=== PATIENT | female | born 1985 | race Caucasian/White ===

== ENCOUNTER 2017-02-11 21:30 | Emergency (ER) | payer OTHER ==
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
--- NOTE | ~2017-02-11 | CR157 ---
[facility] A Service of [facility] & [facility] RADIOLOGY TEXT RESULTS PATIENT: RIDDHI PUENTE LOCATION: [facility] : 85 UNIT #: [id number] AGE: [address]: Quinton Montano SEX: F ORDER DR: [id number] [facility] [address]. [place], [place] [address] [id number] E MR#: [id number] Acc #: [id number] NAME: RIDDHI PUENTE : 1985 SEX: F STUDY DATE/TIME: 02/11/2017 23:31 UNIT: [facility] ROOM: STUDY DESCRIPTION: CR Humerus Min 2 View Rt Attending Physician: Quinton Montano P.A.-C. Ordering Physician: Quinton Montano P.A.-C. Primary Care Physician: [facility] MEDICAL IMAGING REPORT This report is preliminary unless electronic signature is present EXAM 2 views of the right humerus. DATE: 02/11/2017 HISTORY Right humerus pain after injury tonight. Bruising. Abrasions. COMPARISON None. FINDINGS There is no evidence of fracture, dislocation, or radiopaque foreign body. No focal bone lesions are seen. IMPRESSION Normal humerus. Dictated by... Maria E Puente M.D. THIS IS AN ELECTRONICALLY VERIFIED REPORT Maria E Puente M.D. at 02/12/2017 9:55 PM MAXIMUS/chan TD: 02/12/2017 03:16 JOB #: [id number] MEDICAL IMAGING REPORT Page 1 of 1 COPY
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
--- NOTE | ~2017-02-11 | CR156 ---
[facility] A Service of [facility] & [facility] RADIOLOGY TEXT RESULTS PATIENT: RIDDHI PUENTE LOCATION: [facility] : 85 UNIT #: [id number] AGE: [address]: Quinton Montano SEX: F ORDER DR: [id number] [facility] [address]. [place], [place] [address] [id number] E MR#: [id number] Acc #: [id number] NAME: RIDDHI PUENTE : 1985 SEX: F STUDY DATE/TIME: 02/11/2017 23:29 UNIT: [facility] ROOM: STUDY DESCRIPTION: CR Humerus Min 2 View Lt Attending Physician: Quinton Montano P.A.-C. Ordering Physician: Quinton Montano P.A.-C. Primary Care Physician: [facility] MEDICAL IMAGING REPORT This report is preliminary unless electronic signature is present EXAM 2 views left humerus. DATE: 02/11/2017 HISTORY Left humerus pain after injury tonight. COMPARISON None. FINDINGS There is no evidence of fracture, dislocation, or radiopaque foreign body. No focal bone lesions are seen. IMPRESSION Normal humerus. Dictated by... Maria E Puente M.D. THIS IS AN ELECTRONICALLY VERIFIED REPORT Maria E Puente M.D. at 02/12/2017 9:55 PM MAXIMUS/chan TD: 02/12/2017 03:14 JOB #: [id number] MEDICAL IMAGING REPORT Page 1 of 1 COPY
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
--- NOTE | ~2017-02-11 | CR133 ---
[facility] A Service of [facility] RADIOLOGY TEXT RESULTS PATIENT: RIDDHI PUENTE LOCATION: [facility] : 85 UNIT #: [id number] AGE: [address]: Quinton Montano SEX: F ORDER DR: [id number] [facility] [address]. [place], [place] [address] [id number] E MR#: [id number] Acc #: [id number] NAME: RIDDHI PUENTE : 1985 SEX: F STUDY DATE/TIME: 02/11/2017 23:30 UNIT: [facility] ROOM: STUDY DESCRIPTION: CR Forearm 2 View Rt Attending Physician: Quinton Montano P.A.-C. Ordering Physician: Quinton Montano P.A.-C. Primary Care Physician: [facility] MEDICAL IMAGING REPORT This report is preliminary unless electronic signature is present EXAM 2 views right forearm DATE: 02/11/2017 HISTORY Left forearm pain after injury tonight. Abrasions. Bruising. FINDINGS AP and lateral views of the forearm show no evidence of fracture or destructive bone lesion. No periosteal elevation is seen. No radiodense foreign bodies are noted. Adjacent soft tissue structures are normal. IMPRESSION Normal forearm. Dictated by... Maria E Puente M.D. THIS IS AN ELECTRONICALLY VERIFIED REPORT Maria E Puente M.D. at 02/12/2017 9:55 PM MAXIMUS/chan TD: 02/12/2017 03:15 JOB #: [id number] MEDICAL IMAGING REPORT Page 1 of 1 COPY
[~2017-02-11 21:30] MED LIST: ALPRAZOLAM PO; ATARAX PO; BACTRIM DS TABL1 TA1 PO; BACTRIM DS TABL1 TAB PO; DIFLUCAN PO; FLEXERIL10 MG PO; KEFLEX500 MG PO; LORTAB 5/500 TA1 TA1 PO; MACROBID100 MG PO; NAPROSYN-EC500 M1 PO; NAPROSYN500 MG PO; ORUDIS75 M1 DOB; ORUDIS75 M1 PO; PEN-VEE K PO; PHENERGAN25 MG PO; PREDNISONE PO; ULTRAM PO; VIBRAMYCIN100 M1 PO; VOLTAREN75 MG PO; XANAX0.5 M1
== END 2017-02-12 01:17 | disposition home or self-care (01) ==
LOC: CED 21:30 → CFTX 23:59
DX: S40.022A Contusion of left upper arm, initial encounter (principal); S40.021A Contusion of right upper arm, initial encounter; S60.511A Abrasion of right hand, initial encounter; Z23 Encounter for immunization; Y04.0XXA Assault by unarmed brawl or fight, initial encounter
CPT/HCPCS: 73060; 73090; 73130; 90471; 90715; 99283

== ENCOUNTER 2017-02-25 19:10 | Emergency (ER) | payer OTHER ==
[~2017-02-25] VITALS: Ht 152.4 cm; Wt 77.1 kg
--- NOTE | ~2017-02-25 | EKG ---
PATIENT: RIDDHI PUENTE UNIT #: [id number] Ventricular Rate: 104 BPM Atrial Rate: 104 BPM P-R Interval: 150 ms QRS Duration: 92 ms Q-T Interval: 344 ms QTC Calculation(Bezet): 452 ms P [place]: 54 degrees Calculated R [place]: 75 degrees Calculated T [place]: 54 degrees Diagnosis Line: Sinus tachycardia Diagnosis Line: Otherwise normal ECG Diagnosis Line: No previous ECGs available Diagnosis Line: Confirmed by DANIEL IQBAL MD ([id number]) on Diagnosis Line: 02/26/2017 10:34:29 PM INTERPRETING MD: NESTOR
[2017-02-25 19:56] LABS: BASOPHIL# 0.1 X10e3 (0-0.3); BASOPHIL% 0.8 % (0-2.5); EOSINOPHIL% 0.2 % (0.0-7.0); HEMATOCRIT 38.8 % (35.0-45.0); HEMOGLOBIN 13.2 gm/dL (12.0-16.0); LYMPHOCYTE# 2.3 X10e3 (1.0-3.5); LYMPHOCYTE% 27.1 % (17.0-45.0); MEAN CELL VOLUME 94.4 FL (83-96); MEAN CORPUSCULAR HEMOGLOBIN 32.1 PG (28-34); MEAN PLATELET VOLUME 7.7 FL (6.5-11.5); MONOCYTE# 0.6 X10e3 (0-1.0); MONOCYTE% 7.4 % (3.0-12.0); NEUTROPHIL# 5.5 X10e3 (1.5-7.1); NEUTROPHIL% 64.5 % (40-75); PLATELET COUNT 284 X10e3 (140-420); RED BLOOD COUNT 4.11 X10e (3.90-5.30); RED CELL DISTRIBUTION WIDTH 12.3 % (11.0-15.5); WHITE BLOOD COUNT 8.5 X10e3 (4.0-10.5)
[2017-02-25 19:58] LABS: DIFF IND NO
[2017-02-25 20:20] LABS: ALBUMIN SERUM 4.4 g/dL (3.5-5.0); ALKALINE PHOSPHATASE 58 U/L (32-92); ALT (SGPT) 13 U/L (10-40); AST (SGOT) 17 U/L (10-42); BILIRUBIN, DIRECT 0.1 mg/dL (0.0-0.2); BILIRUBIN,INDIRECT 0.5 mg/dL (0.0-0.9); BILIRUBIN,TOTAL 0.6 mg/dL (0.2-2.0); BLOOD UREA NITROGEN 9 mg/dL (9-23); BUN/CREATININE RATIO 12.85; CALCIUM SERUM 8.6 mg/dL (8.4-10.2); CARBON DIOXIDE 22 mmol/L (22-31); CHLORIDE 103 mmol/L (100-111); CREATININE SERUM 0.7 mg/dL (0.6-1.4); GLOM FILT RATE Estimated 115.5 mL/min (>60); GLUCOSE FASTING 83 mg/dL (70-110); POTASSIUM 3.5 mmol/L (3.5-5.1); SODIUM 134 mmol/L (135-145)
[2017-02-25 20:21] LABS: ALCOHOL BLOOD <5 mg/dL (0)
[2017-02-25 21:14] LABS: AMPHETAMINE NEG (NEG); BARBITURATES NEG (NEG); BENZODIAZEPINES NEG (NEG); COCAINE NEG (NEG); MARIJUANA NEG (NEG); OPIATES NEG (NEG); TRICYCLIC ANTIDEPRESSANTS NEG (NEG); U METHADONE NEG (NEG)
[2017-02-25 21:25] LABS: URINE SOURCE CLEAN CATCH
[2017-02-25 21:26] LABS: CULTURE INDICATED? YES; URBCS1 AUWI 0-2 /[HPF] (0-2); URINE APPEARANCE CLOUDY; URINE BACTERIA AUWI 4+ (NEGATIVE); URINE BILIRUBIN NEG (NEG); URINE BLOOD TRACE (NEG); URINE COLOR YELLOW; URINE GLUCOSE NEG (NEG); URINE KETONE 1+ (NEG); URINE LEUKOCYTE ESTERASE 1+ (NEG); URINE NITRATE POS (NEG); URINE PH 5.5 (5-8); URINE PROTEIN NEG (NEG); URINE SPECIFIC GRAVITY 1.023 (1.003-1.035); URINE SQUAMOUS EPITHELIAL CELL NONE SEEN /[HPF]; URINE UROBILINOGEN 0.2 MG/DL (NEG); UWBCS1 AUWI 25-50 (0-5)
== END 2017-02-25 22:20 | disposition home or self-care (01) ==
LOC: CED 19:10
PROVIDERS: Emergency Medicine
DX: N39.0 Urinary tract infection, site not specified (principal); G25.3 Myoclonus; Z90.49 Acquired absence of other specified parts of digestive tract; Z98.51 Tubal ligation status
CPT/HCPCS: 36415; 51701; 80048; 80076; 80307; 81003; 82947; 84703; 85025; 87086; 87088; 87186; 93005; 96361; 96374; 99284; G0480; J2060